=== PATIENT | female | born 1935 | race Caucasian/White ===

== ENCOUNTER → 2017-01-05 | Outpatient (CLI) | payer OTHER ==
[~2017-01-05] MED LIST: AMLO-110 PO; B COCAP3 PO; BNC40 PO; CALC-51 PO; CARV12.5 PO; CENTTAB41 PO; CETI10TA84 PO; CYM/60 PO; DNSIS60; EXLP95 EX; LSX/40 PO; MRP1 PO; NMN10 PO; NXM/40 PO; POTASSIUM PO; RST15 PO; SENNTAB23 PO; VTMD1000 PO; WARF2TAB PO
== END | disposition home or self-care (01) ==
LOC: C.RDSM 10:32
PROVIDERS: ATTEND Physical Medicine & Rehabilitation Sports Medicine
DX: M25.551 Pain in right hip (principal); Z96.641 Presence of right artificial hip joint